=== PATIENT | female | born 1990 | race Caucasian/White ===

== ENCOUNTER 2018-07-10 22:45 | Emergency (ER) | payer BC ==
[~2018-07-10] VITALS: Ht 162.6 cm; Wt 57.6 kg
[2018-07-10 22:58] VITALS: Ht 162.6 cm; Wt 57.6 kg
[2018-07-11 00:17] LABS: BASOPHIL % 0.5 % (0-2); PLATELET COUNT 227 x10^3mcL (130-400); RED CELL DISTRIBUTION WIDTH 11.6 % (11.5-14.5)
[2018-07-11 00:29] LABS: ALBUMIN 3.8 g/dL (3.4-5.0); ALKALINE PHOSPHATASE 35 U/L (46-116); ALT/SGPT 16 U/L (14-59); AST/SGOT 7 U/L (15-37); BILIRUBIN TOTAL 0.3 mg/dL (0.20-1.00); CALCIUM 8.6 mg/dL (8.5-10.1); CARBON DIOXIDE 22.5 mmol/L (21-32); CHLORIDE SERUM 99 mmol/L (98-107); CREATININE SERUM 0.7 mg/dL (0.6-1.0); GFR1 > 60 mL/min; GLUCOSE SERUM 87 mg/dL (74-106); POTASSIUM SERUM 3.2 mmol/L (3.5-5.1); SODIUM SERUM 132 mmol/L (136-145); TOTAL PROTEIN, SERUM 6.9 g/dL (6.4-8.2)
[2018-07-11 00:43] LABS: AMPHETAMINE QUAL UR NONE DETECTED (See below)
[2018-07-11 01:44] VITALS: BP 114/74
== END 2018-07-11 01:44 | disposition home or self-care (01) ==
LOC: ED 22:45
PROVIDERS: Specialist
DX: T43.595A Adverse effect of other antipsychotics and neuroleptics, initial encounter (principal); T43.225A Adverse effect of selective serotonin reuptake inhibitors, initial encounter; Y92.89 Other specified places as the place of occurrence of the external cause; F41.9 Anxiety disorder, unspecified; F32.9 Major depressive disorder, single episode, unspecified; I10 Essential (primary) hypertension
CPT/HCPCS: 36415; Q0162; Q0163

== ENCOUNTER 2018-12-19 16:56 | Emergency (ER) | payer BC ==
[~2018-12-19] VITALS: Ht 162.6 cm; Wt 64.4 kg
[2018-12-19 17:12] VITALS: BP 141/85; Ht 162.6 cm; Wt 64.4 kg
== END 2018-12-19 19:20 | disposition left against medical advice (07) ==
LOC: ED 16:56
DX: Z53.21 Procedure and treatment not carried out due to patient leaving prior to being seen by health care provider (principal)

== ENCOUNTER 2019-05-20 09:30 | Emergency (ER) | payer BC ==
[~2019-05-20] VITALS: Ht 162.6 cm; Wt 66.2 kg
[2019-05-20 09:37] VITALS: Ht 162.6 cm; Wt 66.2 kg
[2019-05-20 11:00] LABS: BASOPHIL % 0.7 % (0-2); PLATELET COUNT 258 x10^3mcL (130-400)
[2019-05-20 11:03] LABS: UA SPECIFIC GRAVITY 1.015 (1.005-1.035); microscopic required? YES; urine erythrocyte 3+ (NEGATIVE)
[2019-05-20 11:10] LABS: RED CELL DISTRIBUTION WIDTH 11.4 % (11.5-14.5)
[2019-05-20 12:23] VITALS: BP 130/71
== END 2019-05-20 12:23 | disposition home or self-care (01) ==
LOC: ED 09:30
PROVIDERS: Emergency Medicine
DX: O20.9 Hemorrhage in early pregnancy, unspecified (principal); F41.9 Anxiety disorder, unspecified; F32.9 Major depressive disorder, single episode, unspecified; F17.210 Nicotine dependence, cigarettes, uncomplicated; Z3A.08 8 weeks gestation of pregnancy
CPT/HCPCS: 36415; Q0092

== ENCOUNTER 2019-05-23 11:01 | Emergency (ER) | payer BC ==
[~2019-05-23] VITALS: Ht 162.6 cm; Wt 67.6 kg
[2019-05-23 11:13] VITALS: Ht 162.6 cm; Wt 67.6 kg
[2019-05-23 13:04] VITALS: BP 120/70
== END 2019-05-23 13:04 | disposition home or self-care (01) ==
LOC: ED 11:01
DX: O03.9 Complete or unspecified spontaneous abortion without complication (principal); F41.9 Anxiety disorder, unspecified; F32.9 Major depressive disorder, single episode, unspecified